=== PATIENT | male | born 1965 | race Caucasian/White ===

== ENCOUNTER 2017-02-24 07:47 | Emergency (ER) | payer OTHER ==
--- NOTE | ~2017-02-24 | CR111 ---
[facility] A Service of [facility] & [facility] RADIOLOGY TEXT RESULTS PATIENT: XANDER MESSER LOCATION: [facility] : 63 UNIT #: [id number] AGE: [address]: WILDA HURTADO SEX: M ORDER DR: [id number] [facility] [address] [place], [place] [address] [id number] E MR#: [id number] Acc #: [id number] NAME: XANDER MESSER : 1965 SEX: M STUDY DATE/TIME: 02/24/2017 8:31 UNIT: [facility] ROOM: STUDY DESCRIPTION: CR Finger 2 View 3rd Rt Attending Physician: Wilda Hurtado A.P.R.N. Ordering Physician: Wilda Hurtado A.P.R.N. MEDICAL IMAGING REPORT This report is preliminary unless electronic signature is present EXAM 3 views of the right third finger. INDICATION Severe laceration this morning. Pain. COMPARISON No comparisons. FINDINGS There is soft tissue swelling and laceration to the distal aspect of the middle finger with amputation of the tuft of the distal phalanx. The remainder of the study is unremarkable. 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 Dictated by... Kevin Tejeda M.D. THIS IS AN ELECTRONICALLY VERIFIED REPORT Kevin Tejeda M.D. at 02/25/2017 3:46 PM MT/n[place] TD: 02/24/2017 18:02 JOB #: [id number] MEDICAL IMAGING REPORT Page 1 of 1 COPY
== END 2017-02-24 10:08 | disposition short-term general hospital (02) ==
LOC: CED 07:47
DX: S61.302A Unspecified open wound of right middle finger with damage to nail, initial encounter (principal); F17.200 Nicotine dependence, unspecified, uncomplicated; I10 Essential (primary) hypertension; Z88.5 Allergy status to narcotic agent; W23.0XXA Caught, crushed, jammed, or pinched between moving objects, initial encounter; Y92.69 Other specified industrial and construction area as the place of occurrence of the external cause; Y99.0 Civilian activity done for income or pay
CPT/HCPCS: 73140; 96372; 99285; J0690